=== PATIENT | male | born 1955 | race Caucasian/White ===

== ENCOUNTER 2024-10-22 22:14 | Inpatient (IN) | payer MEDICARE, OTHER ==
[~2024-10-22] VITALS: Ht 172.7 cm; Wt 91.8 kg
[2024-10-22] MEDS ORDERED: CEFTRIAXONE 1 G VIAL ONE (23:00)
[2024-10-22] MEDS ORDERED: HYDROMORPHONE 1 MG/1 ML DISP.SYRIN ONE (23:00)
[2024-10-22] MEDS ORDERED: ONDANSETRON ODT 4 MG TAB.RAPDIS ONE (23:00)
[2024-10-22] MEDS ORDERED: TDAP DIPH,PERTUSS,TET VAC/PF 0.5 ML DISP.SYRIN IM ONE (23:01)
[2024-10-22] MEDS ORDERED: LIDOCAINE HCL 1% 20 ML VIAL ONE (23:02)
[2024-10-22] MEDS: CEFTRIAXONE 1 G VIAL IM ONE (23:07)
[2024-10-22] MEDS: HYDROMORPHONE 1 MG/1 ML DISP.SYRIN IM ONE (23:07)
[2024-10-22] MEDS: ONDANSETRON ODT 4 MG TAB.RAPDIS SL ONE (23:15)
[2024-10-22] MEDS: TDAP DIPH,PERTUSS,TET VAC/PF 0.5 ML DISP.SYRIN IM ONE (23:15)
[2024-10-23] MEDS ORDERED: HYDROMORPHONE 1 MG/1 ML DISP.SYRIN IV ONE
[2024-10-23] MEDS ORDERED: HYDR-3980 PO (02:58)
[2024-10-23] MEDS ORDERED: ONDA4TAB11 PO (02:58)
[2024-10-23] MEDS ORDERED: ONDANSETRON 4 MG/2 ML VIAL ONE ×2 (06:45→13:56)
[2024-10-23] MEDS ORDERED: HYDROMORPHONE 1 MG/1 ML DISP.SYRIN ONE ×2 (06:45→13:56)
[2024-10-23] MEDS: ONDANSETRON 4 MG/2 ML VIAL IV ONE ×2 (06:47→13:59)
[2024-10-23] MEDS: HYDROMORPHONE 1 MG/1 ML DISP.SYRIN IV ONE ×2 (06:48→13:59)
[2024-10-23] MEDS ORDERED: NEOMY/BACITRA/POLYMYXIN B OINT UD PACKET TP ONE (08:46)
[2024-10-23] MEDS: NEOMY/BACITRA/POLYMYXIN B OINT UD PACKET TP ONE (09:03)
[2024-10-23] MEDS ORDERED: LIDOCAINE 5% PATCH TD ONE (10:37)
[2024-10-23] MEDS: LIDOCAINE 5% PATCH TD ONE (10:38)
[2024-10-23 12:29] LABS: PLATELET COUNT (AUTO) 226 K/uL (152-348); RED BLOOD CELL COUNT(AUTO) 5.31 MIL/uL (4.06-5.63); RED CELL DISTRIBUTION WIDTH 13.6 % (12.1-16.2); WHITE BLOOD COUNT (AUTO) 11.9 K/uL (3.6-10.2)
[2024-10-23 12:37] LABS: CREATININE 0.9 mg/dL (0.6-1.3); SODIUM SERUM 140 mmol/L (136-145); UREA NITROGEN, BLOOD 13 mg/dL (7-18)
[2024-10-23 12:44] LABS: ASPARTATE AMINOTRANSFERASE 20 U/L (15-37); TOTAL PROTEIN, SERUM 6.8 g/dL (6.4-8.2)
[2024-10-23 14:00] VITALS: BP 122/82
[2024-10-23] MEDS ORDERED: ASCO500C18 PO (14:36)
[2024-10-23] MEDS ORDERED: MAGN250T10 PO (14:36)
[2024-10-23] MEDS ORDERED: OREG1500 PO (14:38)
[2024-10-23] MEDS ORDERED: CYAN250010 PO (14:38)
[2024-10-23] MEDS ORDERED: PYRI-6 PO (14:39)
[2024-10-23] MEDS ORDERED: VITA1CAP PO (14:40)
[2024-10-23 15:45] VITALS: BP 160/83; TEMP 98.2; O2SAT 95
[2024-10-23 16:04] VITALS: BP 145/91; TEMP 98.2; O2SAT 97
[2024-10-23] MEDS: HYDROCODONE/APAP 10-325 MG TABLET PO PRN (16:29)
[2024-10-23] MEDS ORDERED: TEMAZEPAM 15 MG CAPSULE PO PRN (17:15)
[2024-10-23 19:40] VITALS: BP 133/94; TEMP 98.7; O2SAT 97
[2024-10-23] MEDS: DOCUSATE SODIUM 100 MG CAPSULE PO SCH (20:51)
[2024-10-24 05:00] VITALS: BP 143/91; TEMP 98; O2SAT 97
[2024-10-24] MEDS: PANTOPRAZOLE SODIUM 40 MG TABLET.DR PO SCH (06:26)
[2024-10-24 06:35] LABS: PLATELET COUNT (AUTO) 225 K/uL (152-348); RED BLOOD CELL COUNT(AUTO) 4.98 MIL/uL (4.06-5.63); RED CELL DISTRIBUTION WIDTH 13.3 % (12.1-16.2); WHITE BLOOD COUNT (AUTO) 8.9 K/uL (3.6-10.2)
[2024-10-24 06:53] LABS: ASPARTATE AMINOTRANSFERASE 18.0 U/L (15-37); CREATININE 0.8 mg/dL (0.6-1.3); SODIUM SERUM 139.0 mmol/L (136-145); TOTAL PROTEIN, SERUM 6.5 g/dL (6.4-8.2); UREA NITROGEN, BLOOD 12.0 mg/dL (7-18)
[2024-10-24 11:33] VITALS: BP 129/77; TEMP 98.2; O2SAT 96
[2024-10-24] MEDS: MORPHINE SULFATE 2 MG/1 ML DISP.SYRIN IV PRN (14:06)
[2024-10-24] MEDS ORDERED: IOHEXOL 350 100 ML INFUS..BTL ONE (14:26)
[2024-10-24] MEDS ORDERED: IV NORMAL SALINE 250 ML IV ONE (14:26)
[2024-10-24] MEDS ORDERED: SWABABLE VALVE TRANSFER SET EA MC ONE (14:26)
[2024-10-24 15:19] VITALS: BP 128/88; TEMP 97.6; O2SAT 95
[2024-10-24] MEDS: MAGNESIUM HYDROXIDE 30 ML LIQUID UDC PO PRN (18:11)
[2024-10-24] MEDS ORDERED: MISCELLANEOUS MED TP PRN (18:15)
[2024-10-24 19:30] VITALS: BP 150/97; TEMP 98.6; O2SAT 95
[2024-10-24] MEDS: DICLOFENAC SODIUM 50 GM GEL..GRAM. TP PRN (20:02)
[2024-10-25 05:08] LABS: HEPATITIS B CORE AB, TOTAL Negative (Negative); HEPATITIS B SURFACE AG Negative (Negative); HEPATITIS C VIRUS ANTIBODY Non Reactive (Non Reactive)
[2024-10-25 05:35] VITALS: BP 125/76; TEMP 98; O2SAT 94
[2024-10-25 07:07] LABS: HEPATITIS B CORE AB, IgM Negative (Negative); HEPATITIS B SURFACE AB, QUAL Non Reactive (.)
[2024-10-25 11:36] VITALS: BP 127/86; TEMP 97.7; O2SAT 97
[2024-10-25] MEDS ORDERED: TRAMADOL HCL 50 MG TABLET PO PRN (13:45)
[2024-10-25 15:55] VITALS: BP 157/88; TEMP 98; O2SAT 96
[2024-10-25 19:30] VITALS: BP 140/94; TEMP 98.7; O2SAT 94
[2024-10-26 06:14] VITALS: BP 139/93; TEMP 98.4; O2SAT 94
[2024-10-26 07:03] LABS: PLATELET COUNT (AUTO) 224 K/uL (152-348); RED BLOOD CELL COUNT(AUTO) 5.14 MIL/uL (4.06-5.63); RED CELL DISTRIBUTION WIDTH 13.4 % (12.1-16.2); WHITE BLOOD COUNT (AUTO) 6.8 K/uL (3.6-10.2)
[2024-10-26 07:21] LABS: CREATINE KINASE, TOTAL 137.0 U/L (39-308); CREATININE 0.9 mg/dL (0.6-1.3); SODIUM SERUM 142.0 mmol/L (136-145); UREA NITROGEN, BLOOD 16.0 mg/dL (7-18)
[2024-10-26] MEDS: HYDROCHLOROTHIAZIDE 12.5 MG CAPSULE PO SCH (08:06)
[2024-10-26] MEDS: LIDOCAINE 5% PATCH TD SCH (09:49)
[2024-10-26 11:37] VITALS: BP 142/90; TEMP 98.6; O2SAT 98
[2024-10-26] MEDS: MIRALAX 17 GM POWD.PACK PO PRN (12:11)
[2024-10-26] MEDS: LIDOCAINE 5% PATCH TD ONE ×2 (12:12→12:13)
[2024-10-26 15:37] VITALS: BP 144/86; TEMP 98.7; O2SAT 97
[2024-10-26 19:00] VITALS: BP 140/91; TEMP 97.5; O2SAT 98
[2024-10-27 06:51] VITALS: BP 137/87; O2SAT 95
[2024-10-27] MEDS: MECLIZINE HCL 25 MG TABLET PO PRN (09:26)
[2024-10-27] MEDS: LIDOCAINE 5% PATCH TD SCH (09:27)
[2024-10-27 11:34] VITALS: BP 119/74; TEMP 97.7; O2SAT 97
[2024-10-27 16:59] VITALS: BP 136/94; TEMP 98.2; O2SAT 97
[2024-10-27] MEDS: ACETAMINOPHEN 325 MG TABLET PO PRN (18:09)
[2024-10-27] MEDS: BISACODYL 10 MG SUPP.RECT RC PRN (18:09)
[2024-10-27 20:06] VITALS: BP 121/78; TEMP 97.2; O2SAT 96
[2024-10-28 04:44] VITALS: BP 129/87; TEMP 97.9; O2SAT 97
[2024-10-28] MEDS ORDERED: LACTULOSE 20 G/30 ML LIQUID UDC PO PRN (09:00)
[2024-10-28 11:10] VITALS: BP 138/85; TEMP 98.2; O2SAT 100
[2024-10-28 15:33] VITALS: BP 146/87; TEMP 98.2; O2SAT 94
[2024-10-28 19:25] VITALS: BP 147/93; TEMP 99.4; O2SAT 96
[2024-10-28] MEDS: SUMATRIPTAN SUCCINATE 50 MG TABLET PO ONE (23:21)
[2024-10-29 05:00] VITALS: BP 139/99; TEMP 98.5; O2SAT 97
[2024-10-29] MEDS ORDERED: SUMA50TA PO (09:02)
[2024-10-29] MEDS ORDERED: MECL-159 PO (09:02)
[2024-10-29] MEDS: SUMATRIPTAN SUCCINATE 50 MG TABLET PO PRN (10:30)
[2024-10-29] MEDS: PROTEIN SUPPLEMENT (PROSTAT) 30 ML LIQUID PO SCH (10:31)
[2024-10-29 11:31] VITALS: BP 116/80; TEMP 98.9; O2SAT 96
[2024-10-29 16:00] VITALS: BP 126/76; TEMP 98.8; O2SAT 96
[2024-10-29 19:00] VITALS: BP 128/83; TEMP 98.8; O2SAT 94
[2024-10-30] MEDS: BENZONATATE 100 MG CAPSULE PO PRN (02:39)
[2024-10-30 06:56] LABS: PLATELET COUNT (AUTO) 204 K/uL (152-348); RED BLOOD CELL COUNT(AUTO) 5.32 MIL/uL (4.06-5.63); RED CELL DISTRIBUTION WIDTH 13.5 % (12.1-16.2); WHITE BLOOD COUNT (AUTO) 6.4 K/uL (3.6-10.2)
[2024-10-30 06:59] VITALS: BP 137/89; TEMP 98.8; O2SAT 95
[2024-10-30 07:08] LABS: CREATININE 0.9 mg/dL (0.6-1.3); SODIUM SERUM 137.0 mmol/L (136-145); UREA NITROGEN, BLOOD 20.0 mg/dL (7-18)
[2024-10-30 09:52] LABS: BASOPHILS % (MANUAL) 1 % (0-2); EOSINOPHILS % (MANUAL) 2 % (0-8); LYMPHOCYTES % (MANUAL) 22 % (20-40); MONOCYTES % (MANUAL) 16 % (2-10); NEUTROPHILS % (MANUAL) 59 % (42-75); PLATELET ESTIMATE ADEQUATE
[2024-10-30] MEDS: ONDANSETRON 4 MG/2 ML VIAL IV PRN (10:16)
[2024-10-30 11:00] VITALS: BP 120/85; TEMP 98; O2SAT 96
[2024-10-30 15:14] VITALS: BP 140/95; TEMP 98.4; O2SAT 97
[2024-10-30 19:43] VITALS: BP 133/88; TEMP 98.4; O2SAT 93
[2024-10-31] VITALS (7 sets, daily range): BP systolic 119–135; BP diastolic 75–91; TEMP 97.4–98.6; O2SAT 95–98
[2024-10-31 06:53] LABS: PLATELET COUNT (AUTO) 215 K/uL (152-348); RED BLOOD CELL COUNT(AUTO) 5.32 MIL/uL (4.06-5.63); RED CELL DISTRIBUTION WIDTH 13.2 % (12.1-16.2); WHITE BLOOD COUNT (AUTO) 5.7 K/uL (3.6-10.2)
[2024-10-31 07:06] LABS: CREATININE 1.0 mg/dL (0.6-1.3); SODIUM SERUM 138.0 mmol/L (136-145); UREA NITROGEN, BLOOD 17.0 mg/dL (7-18)
[2024-10-31] MEDS ORDERED: BENZONATATE 100 MG CAPSULE PO PRN (11:00)
[2024-10-31] MEDS: MELATONIN 3 MG TABLET PO SCH (21:00)
[2024-11-01] MEDS: GUAIFENESIN/DEXTROMETHORPHAN 5 ML UDC PO ONE (05:03)
[2024-11-01 06:14] VITALS: BP 121/82; TEMP 97.7; O2SAT 95
[2024-11-01 10:28] VITALS: BP 144/85; TEMP 97.4; O2SAT 98
[2024-11-01] MEDS: METOCLOPRAMIDE HCL 10 MG/2 ML VIAL IV ONE (12:09)
[2024-11-01 15:51] VITALS: BP 132/89; TEMP 97.8; O2SAT 96
[2024-11-01 22:00] VITALS: BP_SYST 120; BP_SYST 124; BP_SYST 131; BP_DIAS 75; BP_DIAS 78; BP_DIAS 87
[2024-11-01] MEDS: TEMAZEPAM 7.5 MG CAPSULE PO PRN (23:41)
[2024-11-02 04:58] VITALS: BP 131/81; TEMP 97.9; O2SAT 96
[2024-11-02] MEDS ORDERED: CETIRIZINE HCL 10 MG TABLET PO SCH (08:17)
[2024-11-02] MEDS: CETIRIZINE HCL 10 MG TABLET PO SCH (09:15)
[2024-11-02 11:11] VITALS: BP_SYST 121; BP_SYST 125; BP_DIAS 64; BP_DIAS 79; TEMP 97.9; TEMP 98.8; O2SAT 95; O2SAT 98
[2024-11-02] MEDS: GUAIFENESIN/DEXTROMETHORPHAN 5 ML UDC PO PRN (12:59)
[2024-11-02 15:32] VITALS: BP 118/78; TEMP 98.4; O2SAT 96
[2024-11-02] MEDS: OXYMETAZOLINE NASAL 0.05% 15 ML SPRAY NS PRN (18:42)
[2024-11-02 19:00] VITALS: BP 136/85; TEMP 98.4; O2SAT 94
[2024-11-02] MEDS: ALBUTEROL SULFATE 2.5 MG/ 0.5 ML NEBU NEB PRN (20:05)
[2024-11-02 20:10] VITALS: O2SAT 93
[2024-11-02 20:25] VITALS: O2SAT 98
[2024-11-02] MEDS: GUAIFENESIN/CODEINE 5 ML LIQUID UDC PO PRN (22:46)
[2024-11-03 06:36] VITALS: BP 124/87; TEMP 98; O2SAT 96
[2024-11-03 11:35] VITALS: BP 122/86; TEMP 97.8; O2SAT 97
[2024-11-03 15:38] VITALS: BP 140/83; TEMP 98.5; O2SAT 96
[2024-11-03 19:58] VITALS: BP 135/86; TEMP 97.8; O2SAT 93
[2024-11-03 21:36] VITALS: O2SAT 98
[2024-11-04 05:42] VITALS: BP 122/84; TEMP 97.7; O2SAT 95
[2024-11-04 11:33] VITALS: BP 143/98; TEMP 98.1; O2SAT 97
[2024-11-04] MEDS ORDERED: LIDO30AD10 TD (12:05)
[2024-11-04] MEDS ORDERED: GUAI5SYR4 PO (12:05)
[2024-11-04] MEDS ORDERED: MECL-159 PO (14:11)
== END 2024-11-04 15:20 | disposition home health service (06) | DRG 183 ==
LOC: ER 22:23 → TELE3 10-23 13:55 → MEDSURG3 10-23 14:17
PROVIDERS: ADMIT Internal Medicine; ATTEND Internal Medicine
DX: S22.42XA Multiple fractures of ribs, left side, initial encounter for closed fracture (principal); S06.6X0A Traumatic subarachnoid hemorrhage without loss of consciousness, initial encounter; M62.82 Rhabdomyolysis; S01.83XA Puncture wound without foreign body of other part of head, initial encounter; R40.2142 Coma scale, eyes open, spontaneous, at arrival to emergency department; R40.2362 Coma scale, best motor response, obeys commands, at arrival to emergency department; R40.2252 Coma scale, best verbal response, oriented, at arrival to emergency department; Y04.0XXA Assault by unarmed brawl or fight, initial encounter; Y92.513 Shop (commercial) as the place of occurrence of the external cause; S80.812A Abrasion, left lower leg, initial encounter; H91.91 Unspecified hearing loss, right ear; E66.9 Obesity, unspecified; Z68.30 Body mass index [BMI] 30.0-30.9, adult; Z81.3 Family history of other psychoactive substance abuse and dependence; S13.4XXA Sprain of ligaments of cervical spine, initial encounter; I10 Essential (primary) hypertension; R73.03 Prediabetes; M25.512 Pain in left shoulder; R05.9 Cough, unspecified; K59.03 Drug induced constipation; T40.605A Adverse effect of unspecified narcotics, initial encounter; Y92.230 Patient room in hospital as the place of occurrence of the external cause; Z72.0 Tobacco use; F07.81 Postconcussional syndrome; D72.829 Elevated white blood cell count, unspecified; R79.89 Other specified abnormal findings of blood chemistry; Z87.81 Personal history of (healed) traumatic fracture; Z98.890 Other specified postprocedural states; R53.1 Weakness
CPT/HCPCS: 36415; 70030-TC; 70450; 70496; 70551; 71045; 71101; 71250; 72125; 72131; 73030; 73090; 83735; 84100; 84443; 84484; 85025; 85730; 86704; 86705; 86706; 86803; 87340; 87350; 87521; 90715; A4663; G0378; J0696; J1171; J2270; J2405; J2765; J3490; J8597; Q0162; Q9967